=== PATIENT | male | born 1965 | race Caucasian/White ===

== ENCOUNTER 2020-05-28 12:17 | Day surgery (SDC) | payer BC ==
[~2020-05-28] VITALS: Ht 157.5 cm; Wt 90.5 kg
[~2020-05-28 12:17] MED LIST: ACETAMINOPHEN 500 MG TABLET PO PRN; ASPI-630 PO; CARV25TA2 PO; DOXY100C2 PO; HYDROmorphone 2 MG/ML VIAL IV PRN; IV RINGERS,LACTATED 1000ML 1,000 ML IV SCH; LIDOCAINE 1% PF 2 ML VIAL. ID PRN; LOSA100T14 PO; MORPHINE SULFATE 2 MG/ML VIAL. IV PRN; ONDANSETRON PF 4 MG/2 ML VIAL. IV PRN; PROCHLORPERAZINE 10 MG/2 ML VIAL. IV PRN; fentaNYL PF VIAL 100 MCG/2 ML VIAL IV PRN
[2020-05-28] MEDS ORDERED: fentaNYL PF VIAL 100 MCG/2 ML VIAL ONE ×2 (14:03→17:18)
[2020-05-28] MEDS ORDERED: MIDAZOLAM HCL/PF 2 MG/2 ML VIAL. ONE (14:03)
[2020-05-28] MEDS ORDERED: ONDANSETRON PF 4 MG/2 ML VIAL. ONE (14:06)
[2020-05-28] MEDS ORDERED: LIDOCAINE 2% PF 5 ML VIAL. ONE (14:06)
[2020-05-28] MEDS ORDERED: DEXAMETHASONE SOD PHOS 4 MG/ML VIAL ONE (14:06)
[2020-05-28] MEDS ORDERED: PROPOFOL 10 MG/ML (20ML) VIAL. IV ONE (14:06)
[2020-05-28] MEDS ORDERED: BUPIVACAINE-EPI 0.5%-1:200000 MPF 30 ML VIAL. ONE (15:06)
[2020-05-28] MEDS ORDERED: SEVOFLURANE 16 TO 30 MINUTES. IH ONE (16:30)
--- NOTE | 2020-05-28 16:57 | PDOC4 ---
Operative Note Operative Note Date: May 28, 2020 at 1754 Preoperative diagnosis: Left groin abscess Postoperative diagnosis: Same Procedure: Incision and drainage of left groin abscess Surgeon: Benito Specimen: Cultures and tissue from the left groin abscess Dictation: Patient is 54-year-old gentleman whose had a painful bulge in his left groin with pain. Procedure of incision and drainage was explained to the patient detail was benefits were also discussed including bleeding infection. Patient seemed understand gave both verbal and written consent to have procedure performed. Patient was taken to the operating room placed in the supine position general anesthesia was initiated once patient was sleeping in bed was placed in low lithotomy positioning and his perineum was prepped and draped usual sterile fashion was Betadine scrub and solution. Area over the abscess was injected with half percent Marcaine with epinephrine and a 15 blade used used to incise the abscess purulent material was expressed this was cultured and the rest of it was suctioned dry the wound was then irrigated normal saline and then packed with quarter inch iodoform new gauze. 4 x 4's Medipore tape were applied as dressings. Patient was awakened and extubated in the operating room taken to recovery in stable condition all sponge instrument needle counts listed as correct estimated blood loss 5 mL FANI MCCOLLUM MD May 28, 2020 16:57
--- NOTE | 2020-05-28 16:58 | DISCH ---
DISCHARGE INSTRUCTIONS Condition on Discharge Condition on Discharge: Stable Activity After Discharge Activity Instructions for Disc: Avoid exertion Diet after Discharge Diet after Discharge: Regular Wound Incision Care Other wound/incision instructi: May shower in 24 hours, packing should be changed daily Contacting the DRJessica after DC Call your doctor for: If your condition worsens Follow-Up Follow up with: Follow-up with Dr. Mccollum in 1 week FANI MCCOLLUM MD May 28, 2020 16:58
[2020-05-28] MEDS ORDERED: ACET1TAB33 PO (17:19)
[2020-05-28] MEDS: fentaNYL PF VIAL 100 MCG/2 ML VIAL IV PRN ×4 (17:20→17:44)
[2020-05-28] MEDS ORDERED: ACETAMINOPHEN/CODEINE 300/30MG TABLET. PO ONE (17:30)
[2020-05-28 17:52] VITALS: BP 157/96
--- NOTE | 2020-06-05 11:08 | PATHOLOGY ---
[facility] Accession Number: [id number] . 01 Material submitted: . groin - LEFT GROIN MASS (SITE OF ABSCESS). Modifiers: left . 01 Clinical history: . LEFT GROIN ABSCESS . 02 Diagnosis: Skin and subcutaneous tissue "left groin mass", excision: - Epidermal inclusion cyst with surrounding marked acute and chronic inflammation, hemorrhage and hemosiderin deposition. - Negative for malignancy. (MLK:pit; 06/05/2020) P 06/05/2020 1031 Local . 02 Electronically signed: . Mando Vick MD, Pathologist NPI- [id number] . 01 Gross description: . The specimen is received in formalin, labeled "Darius Mcclellan, left groin mass". Received is a segment of barnett-thorne skin with attached underlying soft tissue measuring 1.3 x 0.7 x 1.0 cm in greatest dimensions. The surgical margin is inked. Sectioning reveals pale thorne homogenous cut surfaces. The specimen is bisected and entirely submitted in cassette A1. (CAA; 05/29/2020) QAC/QAC 05/29/2020 1557 Local . 02 Pathologist provided ICD-10: L72.0 . 02 CPT . 943904 Specimen Comment: A courtesy copy of this report has been sent to [phone], [phone] Specimen Comment: [id number] Specimen Comment: Report sent to / Performed at: 01 [facility] [address], [place] [id number] MD Herman Lan MD Phone: [phone] Performed at: 02 [facility] [address], [place] [id number] MD Raul Muñiz MD Phone: [phone]
== END 2020-05-28 18:13 | disposition home or self-care (01) ==
LOC: SURG 12:17
PROVIDERS: ATTEND Surgery
DX: L02.214 Cutaneous abscess of groin (principal); Z20.828 Contact with and (suspected) exposure to other viral communicable diseases; Z88.8 Allergy status to other drugs, medicaments and biological substances; Z79.82 Long term (current) use of aspirin; Z79.899 Other long term (current) drug therapy
CPT/HCPCS: 10060; 87071; 87075; 87426; A7015; J0690; J1100; J2250; J2405; J2704; J3010; U0003; 87076; 87077; 88304

== ENCOUNTER 2020-09-26 11:45 | Emergency (ER) | payer BC ==
[~2020-09-26] VITALS: Ht 182.9 cm; Wt 95.0 kg
[~2020-09-26 11:45] MED LIST changes: +ACET1TAB33 PO; -ACETAMINOPHEN 500 MG TABLET PO PRN; -HYDROmorphone 2 MG/ML VIAL IV PRN; -IV RINGERS,LACTATED 1000ML 1,000 ML IV SCH; -LIDOCAINE 1% PF 2 ML VIAL. ID PRN; -MORPHINE SULFATE 2 MG/ML VIAL. IV PRN; -ONDANSETRON PF 4 MG/2 ML VIAL. IV PRN; -PROCHLORPERAZINE 10 MG/2 ML VIAL. IV PRN; -fentaNYL PF VIAL 100 MCG/2 ML VIAL IV PRN
[2020-09-26 12:23] VITALS: BP 155/102
[2020-09-26] MEDS ORDERED: ORPHENADRINE CITRATE 60 MG/2 ML VIAL. IM ONE (13:45)
--- NOTE | 2020-09-26 13:45 | RAD ---
CT LUMBAR SPINE WO Date: 09/26/2020 1:31 PM Indication: Reason: low back and tailbone pain with sciatica x2 weeks / Spl. Instructions: / Histor y: Comparison: None. Technique: Helical CT images of the lumbar spine were obtained without contrast. Coronal and sagitta l reformatted images were also performed. One or more of the following dose reduction techniques were utilized: Automated exposure control (AEC), Adjustment of mA and/or kV according to patient size, Us e of iterative reconstruction technique such as ASiR, CT scan done according to ALARA and image gentl y/image wisely. Findings: The lumbar spine is normally aligned. No acute fracture. Vertebral body heights are maintained withou t compression deformity. Mild multilevel degenerative disc disease. Multilevel small disc bulges with mild spinal canal stenosis and mild neural foraminal narrowing. Nonobstructive left renal 11 mm calculus. The visualized abdominal aorta is normal caliber. IMPRESSION: 1. No acute osseous abnormality of the lumbar spine. 2. Mild lumbar spondylosis. 3. Nonobstructive left renal 11 mm calculus. Electronically signed by: Bean Villalobos MD (09/26/2020 1:42 PM) [id number]
[2020-09-26] MEDS ORDERED: HYDR-2761 PO (13:53)
--- NOTE | 2020-09-26 13:53 | ED.ADGEN ---
Past Medical History Past Medical History: Hypertension Past Surgical History: Other Additional Past Surgical Histo: L KNEE, L SHOULDER, C5-C6 FUSION Smoking Status: Current Every Day Smoker Alcohol Use: Occasionally General Adult EDM: Chief Complaint: BACK PAIN - NO INJURY HPI: HPI: Patient is a 55 year old presents the emergency department with complaints of left-sided low back pain that radiates to his left leg and groin for the last 2 weeks. Patient states he recently took a taper of prednisone and has been taking Tylenol 3 that was given to him after being evaluated at [facility] ER and then again by his primary care doctor. The patient denies any loss of bowel/bladder control, saddle anesthesia, dysuria, hematuria, or inability to walk. Patient states that the pain increases with movement. He currently rates the pain a 8 out of 10 on pain scale, he denies any alleviating factors. Review of Systems: Review of Systems: Complete ROS is negative unless otherwise noted in HPI. Current Medications: Current Medications Medications (Trade) Dose Ordered Sig/Juan Start Time Stop Time Status Last Admin Dose Admin Orphenadrine Citrate (Norflex) 60 mg 1X ONCE 09/26/20 13:45 09/26/20 13:46 DC 09/26/20 13:40 60 MG Allergies: Allergies: Allergies Coded Allergies Type Severity Reaction Last Updated Verified ibuprofen Allergy Severe Anaphylaxis 05/27/20 Yes Beta-Blockers (Beta-Adrenergic Bloc Allergy Intermediate Hives 05/27/20 Yes NSAIDS (Non-Steroidal Anti-Inflamma Allergy Intermediate Hives 05/27/20 Yes amoxicillin Adverse Reaction Intermediate Diarrhea 05/28/20 Yes Physical Exam: PE: See Above Constitutional: Well developed, well nourished, no acute distress, non-toxic appearance. [] HENT: Normocephalic, atraumatic, bilateral external ears normal, nose normal. [] Eyes: PERRLA, EOMI, conjunctiva normal, no discharge. [] Neck: Normal range of motion, no stridor. [] Cardiovascular:Heart rate regular rhythm Lungs & Thorax: Respirations even and unlabored, no retractions, no respiratory distress Back: Left lumbar paraspinal tenderness to palpation with tenderness over the head of the piriformis, pain radiates down left leg with left leg lift, no bony tenderness, normal sensation of affected extremity. Skin: Warm, dry, no erythema, no rash. [] Extremities: No cyanosis, ROM intact, no edema. [] Neurologic: Alert and oriented X 3, no focal deficits noted. [] Psychologic: Affect normal, judgement normal, mood normal. [] Current Patient Data: Vital Signs: Vital Signs Date Time Temp Pulse Resp B/P (MAP) Pulse Ox O2 Delivery O2 Flow Rate FiO2 09/26/20 12:23 96.5 78 18 155/102 (119) 96 Room Air 96.5 EKG: EKG: [] Heart Score: Risk Factors: Risk Factors: DM, Current or recent (<one month) smoker, HTN, HLP, family history of CAD, obesity. Risk Scores: Score 0 - 3: 2.5% MACE over next 6 weeks - Discharge Home Score 4 - 6: 20.3% MACE over next 6 weeks - Admit for Clinical Observation Score 7 - 10: 72.7% MACE over next 6 weeks - Early Invasive Strategies Radiology/Procedures: Radiology/Procedures: PROCEDURE: CT LUMBAR SPINE WO CONTRAST CT LUMBAR SPINE WO Date: 09/26/2020 1:31 PM Indication: Reason: low back and tailbone pain with sciatica x2 weeks / Spl. Instructions: / History: Comparison: None. Technique: Helical CT images of the lumbar spine were obtained without contrast. Coronal and sagittal reformatted images were also performed. One or more of the following dose reduction techniques were utilized: Automated exposure control (AEC), Adjustment of mA and/or kV according to patient size, Use of iterative reconstruction technique such as ASiR, CT scan done according to ALARA and image gently/image wisely. Findings: The lumbar spine is normally aligned. No acute fracture. Vertebral body heights are maintained without compression deformity. Mild multilevel degenerative disc disease. Multilevel small disc bulges with mild spinal canal stenosis and mild neural foraminal narrowing. Nonobstructive left renal 11 mm calculus. The visualized abdominal aorta is normal caliber. IMPRESSION: 1. No acute osseous abnormality of the lumbar spine. 2. Mild lumbar spondylosis. 3. Nonobstructive left renal 11 mm calculus. [] Course & Med Decision Making: Course & Med Decision Making Pertinent Labs and Imaging studies reviewed. (See chart for details) [] Dragon Disclaimer: Dragon Disclaimer: This electronic medical record was generated, in whole or in part, using a voice recognition dictation system. Departure Departure Impression: Primary Impression: Low back pain with left-sided sciatica Disposition: 01 DC HOME SELF CARE/HOMELESS Condition: STABLE Referrals: ALLISON CORONA MD (PCP) MAGDALENO MURILLO MD Patient Instructions: Back Pain, Adult, Ejhe-tt-Dpcd, Sciatica, Azyd-de-Xwgw Additional Instructions: Fill the prescription(s) and use as directed. Apply heat or ice for to sore areas as needed for comfort. Activity as tolerated. Recommend follow-up with Dr. Murillo for further evaluation. Follow up with your primary care doctor this week if symptoms persist, return to the ER if symptoms worsen. Scripts Hydrocodone Bit/Acetaminophen (HYDROCODONE-APAP 5-325 ) 1 Tab Tablet 0.5-1 TAB PO PRN Q6HRS PRN for SEVERE PAIN 7-10 for 3 Days, #12 TAB 0 Refills Prov: BRAD KAPOOR GEOLOGICAL MANAGER 09/26/20 Problem Qualifiers Primary Impression: Low back pain with left-sided sciatica Chronicity: acute Back pain laterality: left Qualified Codes: M54.42 - Lumbago with sciatica, left side BRAD KAPOOR GEOLOGICAL MANAGER Sep 26, 2020 13:53
== END 2020-09-26 14:15 | disposition home or self-care (01) ==
LOC: ER 11:45
DX: M54.42 Lumbago with sciatica, left side (principal); I10 Essential (primary) hypertension; F17.200 Nicotine dependence, unspecified, uncomplicated; Z88.1 Allergy status to other antibiotic agents; Z88.6 Allergy status to analgesic agent; Z88.8 Allergy status to other drugs, medicaments and biological substances
CPT/HCPCS: 72131; 96372; 99284; J2360

== ENCOUNTER → 2020-10-01 | Outpatient (CLI) | payer BC ==
[2020-09-26 12:23] VITALS: BP 155/102
[~2020-10-01] MED LIST changes: +ATOR10TA60 PO; +DOCU-109 PO; +HYDR-2761 PO; +HYDR-2765 PO; +LOSA1TAB22 PO
--- NOTE | 2020-10-01 13:49 | KCIC ---
MRI lumbar spine without contrast 10/01/2020 CLINICAL HISTORY: Chronic low back pain with new-onset of left leg pain with numbness and burning. TECHNIQUE: Unenhanced T1-weighted and T2-weighted sagittal and axial and inversion recovery sagittal images of the lumbar spine were obtained. FINDINGS: Comparison is made to a CT scan of the lumbar spine dated 09/26/2020. Minimal S-shaped curvature of the thoracolumbar spine is seen. Degenerative signal changes are seen i nvolving all of the disks of the lumbar spine. Degenerative signal changes are seen within the marrow surrounding these discs. Loss of height of the L3-4, L4-5 and L5-S1 discs is noted. The conus medull agata is normal morphology, position, and signal characteristics. At the L1-2 disc space there is a minimal generalized disc bulge. Superimposed on this disc bulge is a right paracentral focal disc protrusion. This measures 2 mm in AP diameter. Degenerative changes ar e seen involving the facet joints bilaterally. There are small bilateral facet joint effusions bilate rally. There is mild ligament flavum hypertrophy bilaterally. These findings when combined do not res ult in significant central spinal canal or neural foraminal stenosis. At the L2-3 disc space is a mild generalized disc bulge. Superimposed on this disc bulge is a focal c entral disc protrusion. This measures 2 mm in AP diameter. Degenerative changes are seen involving th e facet joints bilaterally. There is mild ligament flavum hypertrophy bilaterally. There is prominenc e of the posterior epidural fat. These findings when combined result in mild to moderate central spin al canal stenosis. No neural foraminal stenosis is seen. At the L3-4 disc space there is a mild to moderate generalized disc bulge. This is eccentric to the r ight. Superimposed on this disc bulge is a central/left paracentral focal disc herniation which extru luda superiorly and laterally to the left. The extruded disc measures 2.2 1.2 x 0.6 cm in craniocaudal , transverse and AP dimensions. This extrudes to the superior L3 level. Degenerative changes are seen involving the facet joints bilaterally. There is mild ligamentum flavum hypertrophy bilaterally. The re is prominence of the posterior epidural fat. These findings when combined result in mild to modera te central spinal canal stenosis. No neural foraminal stenosis is seen. The extruded disc herniation results in severe left lateral central spinal canal stenosis throughout the majority of the L3 level. It appears to impinge upon the left L3 nerve root within the left lateral aspect of the central spin al canal. At the L4-5 disc space there is a mild generalized disc bulge. Superimposed on this disc bulge is a f ocal central disc protrusion. This measures 3 mm in AP diameter. Degenerative changes are seen involv ing the facet joints bilaterally. There is mild to moderate ligamentum flavum hypertrophy bilaterally . There are small facet joint effusions bilaterally. There is prominence of the posterior epidural fa t. These findings when combined result in mild to moderate central spinal canal stenosis. No neural f oraminal stenosis is seen. At the L5-S1 disc space there is a mild generalized disc bulge. Superimposed on this disc bulge is a focal central disc protrusion. This measures 3 mm in AP diameter. Degenerative changes are seen invol ving the facet joints bilaterally. There is mild ligamentum flavum hypertrophy bilaterally. These fin dings when combined result in mild central spinal canal stenosis. No neural foraminal stenosis is see n. IMPRESSION: The changes of degenerative disc disease are seen throughout the lumbar spine. These find ings result in mild to moderate central spinal canal stenosis at L2-3, L3-4 and L4-5 and mild central spinal canal stenosis at L5-S1. No neural foraminal stenosis is seen. At the L3-4 disc space there i s a superimposed central/left paracentral disc herniation which extrudes superiorly and laterally to the left. This results in severe left lateral central spinal canal stenosis throughout the majority o f the L3 level and appears to impinge upon the left L3 nerve root within the left lateral aspect of t he central spinal canal. Electronically signed by: Romel Joe MD (10/01/2020 1:46 PM) [id number]
== END ==
LOC: KCIC MRI 12:24
PROVIDERS: ATTEND Neurological Surgery
DX: M51.16 Intervertebral disc disorders with radiculopathy, lumbar region (principal); M47.26 Other spondylosis with radiculopathy, lumbar region; M47.818 Spondylosis without myelopathy or radiculopathy, sacral and sacrococcygeal region; M89.38 Hypertrophy of bone, other site; M48.07 Spinal stenosis, lumbosacral region; M53.3 Sacrococcygeal disorders, not elsewhere classified
CPT/HCPCS: 72148

== ENCOUNTER → 2020-10-02 | Outpatient (CLI) | payer BC ==
[2020-09-26 12:23] VITALS: BP 155/102
[~2020-10-02] MED LIST changes: +ORPH100T PO; +OXYC1TAB19 PO
[2020-10-02 14:31] LABS: BASO # 0.1 x10^3/uL (0.0-0.2); BASO % 1 % (0-3); EOS # 0.2 x10^3/uL (0.0-0.7); EOS % 3 % (0-3); HEMATOCRIT 46.7 % (39.0-53.0); HEMOGLOBIN 16.4 g/dL (13.0-17.5); LYMPH % 38 % (24-48); MEAN CORPUSCULAR HEMOGLOBIN 34 pg (25-35); MEAN CORPUSCULAR HGB CONC 35 g/dL (31-37); MEAN CORPUSCULAR VOLUME 98 fL (79-100); MONO # 0.7 x10^3/uL (0.0-1.1); MONO % 9 % (0-9); NEUT # 3.9 x10^3/uL (1.8-7.7); NEUT % 49 % (31-73); PLATELET COUNT 235 x10^3/uL (140-400); RED BLOOD COUNT 4.76 x10^6/uL (4.30-5.70); RED CELL DISTRIBUTION WIDTH 12.6 % (11.5-14.5); WHITE BLOOD COUNT 7.9 x10^3/uL (4.0-11.0)
[2020-10-02 14:41] LABS: ALBUMIN 3.9 g/dL (3.4-5.0); ALBUMIN/GLOBULIN RATIO 1.1 (1.0-1.7); CALCIUM 9.2 mg/dL (8.5-10.1); GFR 78.2; POTASSIUM 4.7 mmol/L (3.5-5.1); TOTAL BILIRUBIN 0.7 mg/dL (0.2-1.0); TOTAL PROTEIN 7.4 g/dL (6.4-8.2)
== END ==
LOC: SURGPAT 13:15
PROVIDERS: ATTEND Neurological Surgery
DX: Z01.812 Encounter for preprocedural laboratory examination (principal); M51.16 Intervertebral disc disorders with radiculopathy, lumbar region; Z20.828 Contact with and (suspected) exposure to other viral communicable diseases
CPT/HCPCS: 80053; 85025; 87641; U0003

== ENCOUNTER 2020-10-05 09:43 | Day surgery (SDC) | payer BC ==
--- NOTE | 2020-10-02 16:41 | PREOP HP ---
DATE OF SERVICE: 10/05/2020 HISTORY OF PRESENT ILLNESS: The patient is a pleasant 55-year-old man who 3 weeks ago with rising from a crouched position and developed severe lower back pain followed by pain that radiates to his left upper buttock on the left inguinal region and left anterior thigh, stopping just below the knee. He says his pain is a constant 9/10. He is most comfortable with sitting. If he tries to straighten his leg or stand, the pain becomes much more severe. He is taking pain medications. Lying down, he can occasionally find some comfort. He has been to the Emergency Room twice. He has seen a chiropractor about 5 times without benefit. He is taking pain medications as well as steroid medication. He feels as though there may be some weakness in his left leg. He has not noticed numbness. CURRENT MEDICATIONS: Tylenol No. 3, Coreg, atorvastatin, losartan, hydrochlorothiazide, hydrocodone, aspirin. PAST MEDICAL HISTORY: Hypertension. PAST SURGICAL HISTORY: Cervical fusion in 2004, knee surgery in 1995, shoulder surgery in 1997, tennis elbow release in 2007. FAMILY HISTORY: Cancer, hypertension. 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 Single. Smokes half a pack of cigarettes per day for 30 years. Drinks alcohol 1-2 times per week. ALLERGIES: IBUPROFEN. REVIEW OF SYSTEMS: A 12-point review of systems was performed and is noncontributory except that mentioned above. PHYSICAL EXAMINATION: GENERAL: Alert, pleasant and in distress due to back and left leg pain. HEAD: Normocephalic, atraumatic. SKIN: Warm and dry. MUSCULOSKELETAL: Lumbar paraspinal muscle bulk is normal, restricted range of motion of the lumbar spine, jrji-ev-gwfgceaz tenderness of the lumbar spine with palpation, normal range of motion of the lower extremities bilaterally. EXTREMITIES: No clubbing, cyanosis or edema. NEUROLOGIC: Alert and oriented x 3, normal recent and remote memory, strength is 5/5 in the lower extremities except hip flexor and quadriceps strength is 4/5. There is an absent left knee jerk. Right knee jerk was 1+. Sensory was intact to light touch in the lower extremities, straight leg raising on the left was markedly positive with severe back and left leg pain, antalgic gait. IMAGING DATA: I reviewed a CT scan of the lumbar spine as well as a lumbar MRI scan. There is a herniated disk at L3-4 on the left with nerve compression. ASSESSMENT AND PLAN: He has a severe lumbar radiculopathy, which I feel is due to the herniated disc at L3-4. We discussed surgery including a microdiscectomy. We spoke about the technique, risks, and expected postoperative course. He understands and would like to proceed. We are making the arrangements. MAGDALENO MURILLO MD DR: BRADY/kimberlee JOB#: [id number] / [id number] CHACHO
[~2020-10-05] VITALS: Ht 182.9 cm; Wt 90.3 kg
[~2020-10-05 09:43] MED LIST changes: +BACITRACIN 50,000 UNIT in IV NORMAL SALINE 1000ML BAG 1,000 ML IRR ONE; +BUPIVACAINE MPF 0.5% 30 ML VIAL. ONE; +BUPIVACAINE-EPI 0.5%-1:200000 MPF 30 ML VIAL. INJ ONE; -DOCU-109 PO; +EPINEPHrine VIAL 30 MG/30 ML VIAL ONE; +GELATIN SPONGE SIZE 100. ONE; +IV RINGERS,LACTATED 1000ML 1,000 ML IV SCH; +KETOROLAC 60 MG/2 ML VIAL. ONE; +LIDOCAINE 1% PF 30 ML VIAL. ONE; +LIDOCAINE 1%/EPI 1:100,000 20 ML VIAL. ONE; -ORPH100T PO; -OXYC1TAB19 PO; +THROMBIN TOPICAL 20,000 UNIT SPRAY.SYRN KIT TP ONE
--- NOTE | 2020-10-05 10:22 | EKG ---
[facility] [address] [place] [address] Test Date: 2020-10-05 Test Time: 10:17:36 Pat Name: CONNOR BERMUDEZ Department: Room: Gender: M [employer] Sales Representative: DAYRON : 1965 Requested By: MAGDALENO MURILLO Order Number: [id number] Reading MD: Measurements Intervals Newberg Rate: 72 P: -29 TX: 134 QRS: 26 QRSD: 78 T: 30 QT: 410 QTc: 451 Interpretive Statements SINUS RHYTHM VENTRICULAR PREMATURE COMPLEX(ES) INTERPOLATED ATRIAL PREMATURE COMPLEX(ES) QRS(T) CONTOUR ABNORMALITY CONSISTENT WITH SEPTAL INFARCT AGE UNDETERMINED ABNORMAL ECG RI6.02 No previous ECG available for comparison
[2020-10-05] MEDS ORDERED: PROPOFOL 10 MG/ML (20ML) VIAL. IV ONE (10:34)
[2020-10-05] MEDS ORDERED: ROCURONIUM 100 MG/10 ML VIAL. ONE (10:35)
[2020-10-05] MEDS ORDERED: LIDOCAINE 2% PF 5 ML VIAL. ONE (10:35)
[2020-10-05] MEDS ORDERED: SUCCINYLCHOLINE 200 MG/10 ML VIAL. ONE (10:36)
[2020-10-05] MEDS ORDERED: PROPOFOL 50 ML IV ONE ×2 (10:37→13:26)
[2020-10-05] MEDS ORDERED: REMIFENTANIL 2 MG VIAL. IV ONE (10:52)
[2020-10-05] MEDS ORDERED: fentaNYL PF VIAL 100 MCG/2 ML VIAL ONE ×3 (10:55→14:35)
[2020-10-05] MEDS ORDERED: ePHEDrine PF IN SALINE 50 MG/10 ML SYRINGE. IV ONE (12:42)
[2020-10-05] MEDS ORDERED: PHENYLEPHRINE in 0.9% NACL PF 1 MG/10 ML SYRINGE. IV ONE (12:47)
[2020-10-05] MEDS ORDERED: DESFLURANE 61 TO 120 MINUTES IH ONE (12:47)
[2020-10-05] MEDS ORDERED: DEXAMETHASONE SOD PHOS 4 MG/ML VIAL ONE (12:47)
[2020-10-05] MEDS ORDERED: DOCU-109 PO (12:58)
--- NOTE | 2020-10-05 12:59 | DISCH ---
DISCHARGE INSTRUCTIONS Condition on Discharge Condition on Discharge: Stable Activity After Discharge Activity Instructions for Disc: Activity as tolerated, Avoid exertion Other activity instructions: no driving for a week Bathing Instructions: Shower-keep dressing dry, No Tub Bath until see Lifting Instructions after Dis: No heavy lifting, No pulling or pushing, Do not lift >10 pounds Diet after Discharge Diet after Discharge: Regular Additional Diet Restrictions: resume home diet Wound Incision Care Wound/Incision Care: Ice to area for comfort Other wound/incision instructi: may remove dressing in 48 hours if dry then may shower, no soaking Contacting the after DC Call your doctor for: Concerns you may have Follow-Up Follow up with: Dr. Murillo's nurse in 2 weeks [phone] MAGDALENO MURILLO MD Oct 05, 2020 12:59
[2020-10-05] MEDS ORDERED: ONDANSETRON PF 4 MG/2 ML VIAL. ONE (13:49)
[2020-10-05] MEDS ORDERED: IPRATRPIUM/ALBUTEROL 0.5/2.5MG 3 ML NEBU. ONE (14:03)
[2020-10-05] MEDS ORDERED: MORPHINE SULFATE 2 MG/ML VIAL. ONE (14:22)
[2020-10-05] MEDS ORDERED: fentaNYL PF VIAL 100 MCG/2 ML VIAL IVP PRN (14:30)
[2020-10-05] MEDS ORDERED: IV RINGERS,LACTATED 1000ML 1,000 ML IV SCH (14:30)
[2020-10-05] MEDS ORDERED: LIDOCAINE 1% PF 2 ML VIAL. ID PRN (14:30)
[2020-10-05] MEDS ORDERED: IPRATRPIUM/ALBUTEROL 0.5/2.5MG 3 ML NEBU. NEB ONE (14:30)
[2020-10-05] MEDS ORDERED: ONDANSETRON PF 4 MG/2 ML VIAL. IVP PRN (14:30)
[2020-10-05] MEDS ORDERED: PROCHLORPERAZINE 10 MG/2 ML VIAL. IVP PRN (14:30)
[2020-10-05] MEDS ORDERED: HYDROmorphone 2 MG/ML VIAL IVP PRN (14:30)
[2020-10-05] MEDS: MORPHINE SULFATE 2 MG/ML VIAL. IVP PRN ×2 (14:31→14:41)
[2020-10-05] MEDS: fentaNYL PF VIAL 100 MCG/2 ML VIAL IVP PRN ×3 (14:31→14:51)
[2020-10-05] MEDS ORDERED: HYDROcodone/APAP 7.5/325MG 1 TAB TABLET PO PRN ×2 (14:45)
[2020-10-05 14:55] VITALS: BP 144/84
--- NOTE | 2020-10-05 16:28 | OP ---
DATE OF SURGERY: 10/05/2020 PREOPERATIVE DIAGNOSES: Herniated lumbar disc, L3-L4 with superolateral fragment and severe lumbar radiculopathy involving the L3-L4 nerve roots. POSTOPERATIVE DIAGNOSES: Herniated lumbar disc, L3-L4 with superolateral fragment and severe lumbar radiculopathy involving the L3-L4 nerve roots. OPERATION PERFORMED: Hemilaminotomy, L3-L4 left, with medial transforaminal exposure and removal of a large disc fragments compressing the L3 and L4 nerve root. SURGEON: Fredo Murillo M.D. ADMINISTRATIVE ANALYST: LAWRENCE Altman assisted with the exposure, the microdiscectomy as well as the closure. The operation included EMG monitoring, SSEP monitoring, fluoroscopy, microscopic dissection. OPERATIVE INDICATIONS: The patient is a pleasant 55-year-old man who developed severe intractable back and left leg pain and was found to have the above-mentioned findings. There was also left quadriceps and hip flexor weakness. I have recommended lumbar microsurgery. I discussed the surgery, the risks, technique and expected postoperative course and he wished to go ahead. DESCRIPTION OF PROCEDURE: Following general endotracheal anesthesia, the patient was positioned prone on the Cristian frame. His lumbar region was prepped and draped in standard fashion. LUIS hose and AV impulse boots were applied for DVT prophylaxis. The microscope was draped. Fluoroscopy was draped and brought into the field. Monitoring was established. Ancef 2 grams was given less than 1 hour prior to the initiation of the surgery. Using fluoroscopic guidance, a midline incision was made directly over the L3-L4 interspace, dissected down through the subcutaneous tissue, reflected the paraspinal muscles laterally. I placed a Tad microdisk retractor. I brought in the microscope and the remainder of surgery done with microscope using microscopic technique. I burred down a generous hemilaminotomy and then I carried this farther superiorly and then worked laterally, decompressing the medial foramen. I gently retracted the root medially and incised the ligament and annulus and then working superiorly. I visualized a lateral fragment, which I then grasped with a micropituitary and teased back a very large disc fragment, which markedly decompressed the entire region. I then worked farther medially and superiorly and there was a second large fragment, which I grasped and teased back and removed, which fully decompressed the dura. I then explored carefully. There were no further disc fragments. I worked to remove any other disc material and totally decompressed the L3 and L4 roots. At this point, then I felt I had an excellent decompression. I irrigated copiously with antibiotic solution. I did lay a couple of small pieces of Gelfoam down to a minimal amount of venous bleeding, which was amenable to the use of bipolar. I then removed the retractor, obtained hemostasis in the muscle. I irrigated, closed the wound in layers with absorbable suture. The skin was closed with 4-0 subcuticular stitch. The operation went very well. EMG monitoring was excellent throughout. There was a minimal amount of firing during the routine dissection, this settled down immediately. There were no difficulties or untoward events. At the end of the operation, there was no firing, I was quite pleased with the surgery. FREDO MURILLO MD DR: RADHA/kimberlee JOB#: [id number] / [id number] CHACHO
== END 2020-10-05 15:50 | disposition home or self-care (01) ==
LOC: SURG 09:43
PROVIDERS: ATTEND Neurological Surgery
DX: M51.16 Intervertebral disc disorders with radiculopathy, lumbar region (principal); I10 Essential (primary) hypertension; E78.00 Pure hypercholesterolemia, unspecified; E66.9 Obesity, unspecified; M19.90 Unspecified osteoarthritis, unspecified site; F17.210 Nicotine dependence, cigarettes, uncomplicated; Z79.82 Long term (current) use of aspirin; Z79.899 Other long term (current) drug therapy; Z98.890 Other specified postprocedural states; Z88.1 Allergy status to other antibiotic agents; Z88.8 Allergy status to other drugs, medicaments and biological substances; Z72.89 Other problems related to lifestyle
CPT/HCPCS: 63030; 93005; 97116; 97162; 97530; J0330; J0690; J1100; J2270; J2370; J2405; J2704; J3010; J3490; J7030; J7120; 76000; J0171; J1885

== ENCOUNTER 2021-02-05 10:49 | Emergency (ER) | payer BC ==
[~2021-02-05] VITALS: Ht 182.9 cm; Wt 93.1 kg
[~2021-02-05 10:49] MED LIST changes: -BACITRACIN 50,000 UNIT in IV NORMAL SALINE 1000ML BAG 1,000 ML IRR ONE; -BUPIVACAINE MPF 0.5% 30 ML VIAL. ONE; -BUPIVACAINE-EPI 0.5%-1:200000 MPF 30 ML VIAL. INJ ONE; +DOCU-109 PO; -EPINEPHrine VIAL 30 MG/30 ML VIAL ONE; -GELATIN SPONGE SIZE 100. ONE; -IV RINGERS,LACTATED 1000ML 1,000 ML IV SCH; -KETOROLAC 60 MG/2 ML VIAL. ONE; -LIDOCAINE 1% PF 30 ML VIAL. ONE; -LIDOCAINE 1%/EPI 1:100,000 20 ML VIAL. ONE; -THROMBIN TOPICAL 20,000 UNIT SPRAY.SYRN KIT TP ONE
[2021-02-05 11:28] VITALS: BP 184/116
[2021-02-05] MEDS ORDERED: ORPH100T PO (11:31)
[2021-02-05] MEDS ORDERED: OXYC1TAB19 PO (11:31)
--- NOTE | 2021-02-05 11:33 | PHYS DOC ---
Past Medical History Past Medical History: Hypertension Past Surgical History: Other Additional Past Surgical Histo: L KNEE, L SHOULDER, C5-C6 FUSION Smoking Status: Current Every Day Smoker Alcohol Use: Occasionally General Adult EDM: Chief Complaint: BACK PAIN OR INJURY HPI: HPI: Patient is a 55 year old [f__sex] who presents with [] Review of Systems: Review of Systems: Constitutional: Denies fever or chills. [] Eyes: Denies change in visual acuity. [] HENT: Denies nasal congestion or sore throat. [] Respiratory: Denies cough or shortness of breath. [] Cardiovascular: Denies chest pain or edema. [] GI: Denies abdominal pain, nausea, vomiting, bloody stools or diarrhea. [] : Denies dysuria. [] Musculoskeletal: Denies back pain or joint pain. [] Integument: Denies rash. [] Neurologic: Denies headache, focal weakness or sensory changes. [] Endocrine: Denies polyuria or polydipsia. [] Lymphatic: Denies swollen glands. [] Psychiatric: Denies depression or anxiety. [] Heart Score: Risk Factors: Risk Factors: DM, Current or recent (<one month) smoker, HTN, HLP, family history of CAD, obesity. Risk Scores: Score 0 - 3: 2.5% MACE over next 6 weeks - Discharge Home Score 4 - 6: 20.3% MACE over next 6 weeks - Admit for Clinical Observation Score 7 - 10: 72.7% MACE over next 6 weeks - Early Invasive Strategies Allergies: Allergies: Allergies Coded Allergies Type Severity Reaction Last Updated Verified ibuprofen Allergy Severe Anaphylaxis 10/05/20 Yes Beta-Blockers (Beta-Adrenergic Bloc Allergy Intermediate Hives 10/05/20 Yes NSAIDS (Non-Steroidal Anti-Inflamma Allergy Intermediate Hives 10/05/20 Yes Physical Exam: PE: Constitutional: Well developed, well nourished, no acute distress, non-toxic appearance. [] HENT: Normocephalic, atraumatic, bilateral external ears normal, oropharynx moist, no oral exudates, nose normal. [] Eyes: PERRLA, EOMI, conjunctiva normal, no discharge. [] Neck: Normal range of motion, no tenderness, supple, no stridor. [] Cardiovascular:Heart rate regular rhythm, no murmur [] Lungs & Thorax: Bilateral breath sounds clear to auscultation [] Abdomen: Bowel sounds normal, soft, no tenderness, no masses, no pulsatile masses. [] Skin: Warm, dry, no erythema, no rash. [] Back: No tenderness, no CVA tenderness. [] Extremities: No tenderness, no cyanosis, no clubbing, ROM intact, no edema. [] Neurologic: Alert and oriented X 3, normal motor function, normal sensory function, no focal deficits noted. [] Psychologic: Affect normal, judgement normal, mood normal. [] Current Patient Data: Vital Signs: Vital Signs Date Time Temp Pulse Resp B/P (MAP) Pulse Ox O2 Delivery O2 Flow Rate FiO2 02/05/21 11:05 98.1 71 20 201/123 (149) 100 Room Air 98.1 EKG: EKG: [] Radiology/Procedures: Radiology/Procedures: [] Course & Med Decision Making: Course & Med Decision Making Pertinent Labs and Imaging studies reviewed. (See chart for details) [] Dragon Disclaimer: Dragon Disclaimer: This electronic medical record was generated, in whole or in part, using a voice recognition dictation system. Departure Departure Impression: Primary Impression: Low back pain with left-sided sciatica Qualified Codes: M54.42 - Lumbago with sciatica, left side; G89.29 - Other chronic pain Disposition: 01 HOME / SELF CARE / HOMELESS Condition: STABLE Referrals: ALLISON CORONA MD (PCP) MAGDALENO MURILLO MD Patient Instructions: Chronic Back Pain, Sciatica, [id number] Additional Instructions: Discontinue previously prescribed Flexeril. Hold Hydrocodone prescription while taking Oxycodone. Continue previously prescribed steroid. Scripts Orphenadrine Citrate (ORPHENADRINE CITRATE) 100 Mg Tablet.er 100 MG PO BID PRN for MUSCLE PAIN, #14 TAB Prov: HANK HYATT DO 02/05/21 Oxycodone/Apap 7.5-325 (PERCOCET 7.5-325 MG TABLET ) 1 Each Tablet 0.5-1 TAB PO PRN Q6HRS PRN for PAIN, #10 TAB 0 Refills Prov: HANK HYATT DO 02/05/21 HANK HYATT DO February 05, 2021 11:33
== END 2021-02-05 11:40 | disposition home or self-care (01) ==
LOC: ER 10:49
DX: M54.42 Lumbago with sciatica, left side (principal); I10 Essential (primary) hypertension; F17.200 Nicotine dependence, unspecified, uncomplicated; Z88.8 Allergy status to other drugs, medicaments and biological substances
CPT/HCPCS: 99283

== ENCOUNTER 2021-02-09 11:02 | Observation (INO) | payer BC ==
[~2021-02-09] VITALS: Ht 182.9 cm; Wt 93.2 kg
[~2021-02-09 11:02] MED LIST changes: +ORPH100T PO; +OXYC1TAB19 PO
[2021-02-09] MEDS ORDERED: ONDANSETRON PF 4 MG/2 ML VIAL. IVP ONE (13:00)
[2021-02-09] MEDS ORDERED: MORPHINE SULFATE 4 MG/ML VIAL. IV ONE ×2 (13:00→15:00)
--- NOTE | 2021-02-09 13:10 | PHYS DOC ---
Past Medical History Past Medical History: Hypertension Past Surgical History: Other Additional Past Surgical Histo: L KNEE, L SHOULDER, C5-C6 FUSION, bulging discs Smoking Status: Current Every Day Smoker Alcohol Use: Occasionally General Adult EDM: Chief Complaint: BACK PAIN OR INJURY HPI: HPI: Patient is a 55 year old with history of Herniated lumbar disc, L3-L4 with superolateral fragment and severe lumbar radiculopathy involving the L3-L4 nerve roots status post surgery done by Dr. Fredo Murillo in 10/05/20 presented to the ER today for evaluation of lower back pain for about 1 week. Patient has been having numbness on the anterior part of his left thigh to the knee cap area. Patient stared having worse pain and numbness yesterday. He said this morning, he was trying to urinate but was not able to empty his bladder, he lost control of his bladder later, urinated on himself. He call his Neurosurgeon, Dr. Fredo Murillo who advised him to come to the ER for evaluation with MRI of his lumbar spine. Patient denies any cough or fever. Patient denies any abdominal pain. Review of Systems: Review of Systems: Constitutional: Denies fever or chills. [] Eyes: Denies change in visual acuity. [] HENT: Denies nasal congestion or sore throat. [] Respiratory: Denies cough or shortness of breath. [] Cardiovascular: Denies chest pain or edema. [] GI: Denies abdominal pain, nausea, vomiting, bloody stools or diarrhea. [] : Denies dysuria. Positive for bladder incontinence. Musculoskeletal: Positive for lower back pain that radiating to left thigh Integument: Denies rash. [] Neurologic: Denies headache, focal weakness or sensory changes. [] Endocrine: Denies polyuria or polydipsia. [] Lymphatic: Denies swollen glands. [] Psychiatric: Denies depression or anxiety. [] Heart Score: C/O Chest Pain: N/A Risk Factors: Risk Factors: DM, Current or recent (<one month) smoker, HTN, HLP, family history of CAD, obesity. Risk Scores: Score 0 - 3: 2.5% MACE over next 6 weeks - Discharge Home Score 4 - 6: 20.3% MACE over next 6 weeks - Admit for Clinical Observation Score 7 - 10: 72.7% MACE over next 6 weeks - Early Invasive Strategies Current Medications: Current Medications Medications (Trade) Dose Ordered Sig/Juan Start Time Stop Time Status Last Admin Dose Admin Morphine Sulfate (Morphine Sulfate) 4 mg 1X ONCE 02/09/21 13:00 02/09/21 13:01 DC Ondansetron HCl (Zofran) 4 mg 1X ONCE 02/09/21 13:00 02/09/21 13:01 DC Allergies: Allergies: Allergies Coded Allergies Type Severity Reaction Last Updated Verified ibuprofen Allergy Severe Anaphylaxis 10/05/20 Yes Beta-Blockers (Beta-Adrenergic Bloc Allergy Intermediate Hives 10/05/20 Yes NSAIDS (Non-Steroidal Anti-Inflamma Allergy Intermediate Hives 10/05/20 Yes Physical Exam: PE: Constitutional: Well developed, well nourished, no acute distress, non-toxic appearance. [] HENT: Normocephalic, atraumatic, bilateral external ears normal, oropharynx moist, no oral exudates, nose normal. [] Eyes: PERRLA, EOMI, conjunctiva normal, no discharge. [] Neck: Normal range of motion, no tenderness, supple, no stridor. [] Cardiovascular:Heart rate regular rhythm, no murmur [] Lungs & Thorax: Bilateral breath sounds clear to auscultation [] Abdomen: Bowel sounds normal, soft, no tenderness, no masses, no pulsatile masses. [] Skin: Warm, dry, no erythema, no rash. [] Back: There is tenderness to palpation in L4/L5 AREA AT MIDLINE. There is altered sensation on left anterior thigh and knee area. Patient can move his toes without any problem. . [] Extremities: No tenderness, no cyanosis, no clubbing, ROM intact, no edema. [] Neurologic: Alert and oriented X 3, normal motor function, normal sensory function, no focal deficits noted. [] Psychologic: Affect normal, judgement normal, mood normal. [] Current Patient Data: Vital Signs: Vital Signs Date Time Temp Pulse Resp B/P (MAP) Pulse Ox O2 Delivery O2 Flow Rate FiO2 02/09/21 12:25 98.1 100 18 150/86 (107) 100 98.1 EKG: EKG: [] Radiology/Procedures: Radiology/Procedures: [][facility] [address] [place] [address] IMAGING REPORT Signed PATIENT: CONNOR BERMUDEZ ACCOUNT: [id number] : 1965 LOCATION: ER AGE: 55 SEX: M EXAM STATUS: REG ER ORD. PHYSICIAN: TERRANCE MALDONADO DO REASON: LOWER BACK PAIN PROCEDURE: LUMBAR SPINE 2-3V Site ID: [id number] EXAMINATION: XR LUMBAR SPINE 2-3V. HISTORY: 55 years Male Reason: LOWER BACK PAIN / Spl. Instructions: / History: . . COMPARISON: None. FINDINGS: The vertebral body heights and alignment of the spine satisfactory disc heights are also preserved there are mild anterior osteophytes lower lumbar spine no gross SI joints. The paraspinal soft tissues demonstrate calcification measuring 1.2 cm likely related to a stone. IMPRESSION: Mild degenerative changes. Suggestion left kidney stone. Electronically signed by: Katie Silva MD (02/09/2021 1:19 PM) [id number] DICTATED and SIGNED BY: KATIE SILVA MD DATE: 02/09/21 [id number] Course & Med Decision Making: Course & Med Decision Making Pertinent Labs and Imaging studies reviewed. (See chart for details) This physician discussed with the neurosurgeon, Dr. Fredo Murillo, who recommended STAT MRI OF his lumbar spine without and with IV contrast. Patient was in a lot of pain, patient was given multiple doses of pain medication in ER, due to his neurological symptom, his physician told patient that we need to get him admitted to hospital for pain control. Patient agreed with the recommendation. Discussed with the hospitalist on-call, Dr. Faria about admitting patient due to pain and neuropathy in his left thigh, Dr. Faria agreed to admit patient and came down to see patient in the ER. Admission order was done, MRI OF LUMBAR SPINE REPORT WAS STILL PENDING, NOTIFIED DR. FREDO MURILLO ABOUT IT. Patient was given 1 mg IV Dilaudid for pain control. He felt much better. He had a bed assigned to [place] [id number]. This physician was told by patient RN, Anton, that patient's family just came, he did not want to be admitted. He wanted to leave despite MRI of his lumbar spine report is not avaiable yet. Patient signed out against medical advise. He was awake alert oriented. Notified by nurse that patient wishes to leave against medical advice. Had an extensive discussion with the patient regarding the risks of leaving AMA inc luding but not limited to , permanent disability, and worsening condition. Patient acknowledged the risks and agreed to take full responsibility. Patient was A&Ox4 and had full medical decision making capacity. Patient signed AMA form stating they understood risks and ambulated out of ED with steady gait. Dragon Disclaimer: Dragon Disclaimer: This electronic medical record was generated, in whole or in part, using a voice recognition dictation system. Departure Departure Impression: Primary Impression: Low back pain radiating to lower extremity Disposition: LEFT AGAINST MEDICAL ADVICE Condition: STABLE Referrals: ALLISON CORONA MD (PCP) Patient Instructions: Discharge Against Medical Advice TERRANCE MALDONADO DO February 09, 2021 13:10
--- NOTE | 2021-02-09 13:22 | RAD ---
Site ID: [id number] EXAMINATION: XR LUMBAR SPINE 2-3V. HISTORY: 55 years Male Reason: LOWER BACK PAIN / Spl. Instructions: / History: . . COMPARISON: None. FINDINGS: The vertebral body heights and alignment of the spine satisfactory disc heights are also preserved th ere are mild anterior osteophytes lower lumbar spine no gross SI joints. The paraspinal soft tissues demonstrate calcification measuring 1.2 cm likely related to a stone. IMPRESSION: Mild degenerative changes. Suggestion left kidney stone. Electronically signed by: Frandy Silva MD (02/09/2021 1:19 PM) [id number]
[2021-02-09 13:25] LABS: BASO # 0.1 x10^3/uL (0.0-0.2); BASO % 1 % (0-3); EOS # 0.1 x10^3/uL (0.0-0.7); EOS % 1 % (0-3); HEMATOCRIT 50.5 % (39.0-53.0); HEMOGLOBIN 17.6 g/dL (13.0-17.5); LYMPH # 4.4 x10^3/uL (1.0-4.8); LYMPH % 31 % (24-48); MEAN CORPUSCULAR HEMOGLOBIN 34 pg (25-35); MEAN CORPUSCULAR HGB CONC 35 g/dL (31-37); MEAN CORPUSCULAR VOLUME 98 fL (79-100); MONO # 1.1 x10^3/uL (0.0-1.1); MONO % 7 % (0-9); NEUT # 8.7 x10^3/uL (1.8-7.7); NEUT % 60 % (31-73); PLATELET COUNT 246 x10^3/uL (140-400); RED BLOOD COUNT 5.18 x10^6/uL (4.30-5.70); RED CELL DISTRIBUTION WIDTH 12.6 % (11.5-14.5); WHITE BLOOD COUNT 14.4 x10^3/uL (4.0-11.0)
[2021-02-09 13:44] LABS: CALCIUM 8.9 mg/dL (8.5-10.1); CREATININE 1.2 mg/dL (0.7-1.3); GFR 63.3
[2021-02-09 13:49] LABS: ALBUMIN 4.1 g/dL (3.4-5.0); ALBUMIN/GLOBULIN RATIO 1.2 (1.0-1.7); TOTAL PROTEIN 7.5 g/dL (6.4-8.2)
[2021-02-09] MEDS ORDERED: GADOTERATE 7.5 MMOL/15ML VIAL. IVP ONE (15:45)
[2021-02-09] MEDS ORDERED: HYDROmorphone 2 MG/ML VIAL IVP ONE (15:45)
[2021-02-09 15:57] LABS: BILIRUBIN,URINE NEGATIVE (NEG); CLARITY,URINE CLEAR; COLOR,URINE YELLOW; NITRITE,URINE NEGATIVE (NEG); PROTEIN,URINE NEGATIVE (NEG-TRACE); UROBILINOGEN,URINE 0.2 mg/dL (0.2 mg/dL)
[2021-02-09 16:10] LABS: HYALINE CASTS, URINE MODERATE /HPF
[2021-02-09 16:11] LABS: BACTERIA,URINE 0 /HPF (0-FEW)
[2021-02-09 17:47] VITALS: BP 155/98
[2021-02-09] MEDS ORDERED: IV NORMAL SALINE 1000ML BAG 1,000 ML IV SCH (18:30)
[2021-02-09] MEDS ORDERED: ONDANSETRON PF 4 MG/2 ML VIAL. IV PRN (18:30)
[2021-02-09] MEDS ORDERED: MORPHINE SULFATE 4 MG/ML VIAL. IV PRN (18:30)
--- NOTE | 2021-02-09 19:05 | HP ---
ADMIT DATE: 02/09/2021 CHIEF COMPLAINT: Back pain. HISTORY OF PRESENT ILLNESS: The patient is a pleasant 55-year-old male who has known previous lumbar radiculopathy. He actually had surgery 5 months ago. He has been doing well, but over the past week has developed severe pain. He also has some numbness in his legs and today he lost control of his bladder. His neurosurgeon, Dr. Lang asked him to go to the ER. The patient is now being admitted. I have discussed the case with ER physician. PAST MEDICAL HISTORY: Left knee surgery, left shoulder surgery, bulging disk and he has had surgery on his back, tobacco abuse. ALLERGIES: BETA BLOCKERS AND NONSTEROIDALS. FAMILY HISTORY: Diabetes. SOCIAL HISTORY: He smokes. No drink or drugs. MEDICATIONS: Reviewed, please refer to the MRAD. REVIEW OF SYSTEMS: GENERAL: No history of weight change, weakness or fevers. SKIN: No bruising, hair changes or rashes. EYES: No blurred, double or loss of vision. NOSE AND THROAT: No history of nosebleeds, hoarseness or sore throat. HEART: No history of palpitations, chest pain or shortness of breath on exertion. LUNGS: Denies cough, hemoptysis, wheezing or shortness of breath. GASTROINTESTINAL: Denies changes in appetite, nausea, vomiting, diarrhea or constipation. GENITOURINARY: No history of frequency, urgency, hesitancy or nocturia. NEUROLOGIC: Denies history of numbness, tingling, tremor or weakness. PSYCHIATRIC: No history of panic, anxiety or depression. ENDOCRINE: No history of heat or cold intolerance, polyuria or polydipsia. MUSCULOSKELETAL: He complains of back pain. PHYSICAL EXAMINATION: VITALS: Within normal limits and are stable. GENERAL: No apparent distress. Alert and oriented. HEENT: Normal cephalic atraumatic, external auditory canals are patent EYES: Extraocular muscles are intact, pupils are equally round and reactive to light and accommodation ENDOCRINE: No thyromegaly was palpated LYMPHATICS: No cervical chain or axillary nodes were noted. HEMATOPOIETIC: No bruising. NECK: Supple, no JVD, no thyromegaly was noted. LUNGS: Clear to auscultation in all lung monae without rhonchi or wheezing. HEART: RRR, S1, S2 present. Peripheral pulses intact, no obvious murmurs were noted. ABDOMEN: Soft, nontender. Positive bowel sounds no organomegaly, normal bowel sounds. MUSCULOSKELETAL: He has some ropiness to the muscles of the lower back. NEUROLOGIC: He has decreased plantar flexion. PSYCHIATRIC: Normal affect, normal mood. Stable. SKIN: No ulcerations or rashes, good skin turgor, no jaundice. VASCULAR: Good capillary refill, neurovascular bundle appears to be intact. ASSESSMENT AND PLAN: Acute on chronic radiculopathy. The patient has been admitted. We will consult Dr. Lang. Home meds. DVT prophylaxis. Full code. P.r.n. pain meds. We will consider steroids. EMEKA/HARITHA/KAITLYNN DR: EMEKA/kimberlee TID: [id number]
[2021-02-09] MEDS ORDERED: methylPREDNISolone SOD SUCC PF 40 MG/ML VIAL. IV SCH (22:00)
--- NOTE | 2021-02-10 10:32 | RAD ---
MRI LUMBAR SPINE WITHOUT AND WITH IV CONTRAST History: Reason: lower back pain with bladder incontinence, left leg numbness, hx of surgery / Spl. I nstructions: 18.5mL CLARISCAN / History: Technique: Multiplanar, multi sequential MR imaging was performed of the lumbar spine without and wit h intravenous contrast. Comparison: October 01, 2020 Findings: Postoperative changes L3-L4 left hemilaminotomy. Enhancement within the laminectomy defect. Enhancing nerve root within the right thecal sac extending to the right L3-L4 neural foramen, potentially post operative. Slight grade 1 anterolisthesis L5 on S1, unchanged. Normal vertebral height. No fracture. Conus terminates at the normal location. No evidence of nerve root clumping. L1-L2: Small disc bulge. No canal or neuroforaminal narrowing. L2-L3: Small disc bulge with central annular fissure. Mild facet arthropathy. No canal narrowing. Puente barticular recess narrowing. No neuroforaminal narrowing. L3-L4: Interval left hemilaminectomy. Broad-based disc bulge with decreased left subarticular disc e xtrusion extending superiorly. Central annular fissure. Subarticular recess narrowing. Decreased joselito l narrowing. Right foraminal disc protrusion. Mild bilateral neuroforaminal narrowing, right greater than left. Moderate facet arthropathy. L4-L5: Disc bulge. Moderate facet arthropathy. Mild canal narrowing, increased compared to prior. Puente barticular recess narrowing. Abutment of the descending L5 nerve roots. Prominent epidural fat. Mild right neuroforaminal narrowing, unchanged. L5-S1: Slight anterolisthesis. Central disc bulge. Moderate facet arthropathy. Abutment of the desce nding S1 nerve roots within the subarticular recess, increased. No canal narrowing. No neuroforaminal narrowing. Impression: 1. Interval postoperative changes L3-L4 with improved canal patency. Decreased left subarticular L3- L4 disc extrusion extending superiorly. 2. Multilevel lumbar spondylosis with increased canal and subarticular recess narrowing L4-5. Electronically signed by: Carlos Lucas DO (02/10/2021 10:30 AM) [id number]
== END 2021-02-10 06:04 | disposition left against medical advice (07) ==
LOC: ER 11:02 → 4 NORTH 17:04
PROVIDERS: ADMIT Internal Medicine; ATTEND Internal Medicine
DX: M54.16 Radiculopathy, lumbar region (principal); I10 Essential (primary) hypertension; F17.200 Nicotine dependence, unspecified, uncomplicated; Z79.899 Other long term (current) drug therapy; Z98.890 Other specified postprocedural states
CPT/HCPCS: 36415; 72100; 72158; 80053; 81001; 85025; 96374; 96375; 96376; 99285; A9575; G0378; J1170; J2270; J2405; G0379

== ENCOUNTER → 2021-02-12 | Outpatient (CLI) | payer BC ==
[2021-02-09 17:47] VITALS: BP 155/98
[~2021-02-12] MED LIST changes: +IOHEXOL 180 MG/ML 10 ML VIAL. ONE; +methylPREDNISolone ACETATE 40 MG/ML VIAL. ONE; +methylPREDNISolone ACETATE 80 MG/ML VIAL. ONE
--- NOTE | 2021-02-12 12:39 | PDOC1 ---
INITIAL PAIN CONSULT DATE OF SERVICE: DOS: DATE: 02/12/21 TIME: 12:32 CHIEF COMPLAINT: Chief Complaint: Low back and left lower extremity pain HISTORY OF PRESENT ILLNESS: 55-year-old male presents history of pain in the low back left lower extremity status post recent lumbar discectomy with laminectomy at the L3-4 level left- sided hemilaminectomy. Patient reports this was on October 01, 2020, and had excellent relief of the pain immediately following however over the past 2 weeks the pain is returned and is as bad as it was back prior to his surgery. Patient reports in the low back and posterior gluteus posterior lateral thigh anterior thigh anteromedial thigh left groin and medial lower leg as well. Patient reports worse with walking standing weightbearing describes as constant sharp throbbing shooting numbness and tingling in the leg cramping in the back and the leg patient reports it wakes him from sleep least 3 times or more at night. Patient reports it does affect his ability to walk does not use any assistive device however it also causes some incontinence at times from the bladder. Patient reports has had physical therapy also chiropractic treatment each of which were only minimally helpful patient reports he is taking oxycodone also hydrocodone and Flexeril which help but only for minimal amount patient also taking ibuprofen which is helpful but only very minimally as well. Patient rates his disability rating 0-10 10 being the worst is a 7 with family home responsibilities recreation and social activity 7-8 with sexual behavior 6 with self-care and 6 with life support activities. Patient did have MRI scan lumbar spine dated February 09, 2021 showing interval postoperative changes L3-4 with improved canal patency decreased left subarticular L3-4 disc extrusion extending superiorly. PAST MEDICAL HISTORY: PMH: Hypertension, cigarette smoking PREVIOUS SURGERIES: Past Surgical Hx: Cervical fusion 2008, lumbar hemilaminectomy October 01, 2020, right elbow release left rotator cuff repair and tonsillectomy CURRENT MEDICATIONS: Current Meds: Active Scripts Medications Dose Route/Sig Max Daily Dose Days Date Category Orphenadrine Citrate 100 Mg Tablet.er 100 Mg PO BID PRN 02/05/21 Rx Percocet 7.5-325 Mg Tablet (Oxycodone/Acetaminophen) 1 Each Tablet 0.5-1 Tab PO PRN Q6HRS PRN 02/05/21 Rx Atorvastatin Calcium 10 Mg Tablet 10 Mg PO HS 10/02/20 Reported Hydrocodone-Apap 7.5-325 (Hydrocodone Bit/Acetaminophen) 1 Tab Tablet 2 Tab PO PRN Q6HRS PRN 10/02/20 Reported Losartan-Hctz 100-25 Mg Tab (Losartan/Hydrochlorothiazide) 1 Each Tablet 1 Tab PO DAILY 10/02/20 Reported Carvedilol 25 Mg Tablet 25 Mg PO BIDWMEALS 05/27/20 Reported Aspirin 81 Mg Tab.chew 81 Mg PO BID 05/27/20 Reported ALLERGIES; Allergies: Coded Allergies: ibuprofen (Verified Allergy, Severe, Anaphylaxis, 10/05/20) Beta-Blockers (Beta-Adrenergic Bloc (Verified Allergy, Intermediate, Hives, 10/05/20) CERTAIN BETA BLOCKERS CAUSE HIVES (NOT CARVEDILOL NSAIDS (Non-Steroidal Anti-Inflamma (Verified Allergy, Intermediate, Hives, 10/05/20) FAMILY HISTORY: Family Hx: Hypertension SOCIAL HISTORY: Social Hx: Patient drinks alcohol occasionally does not use any illegal illicit recre ational drugs smokes cigarettes about a pack a day or less and has for 30 years continues to smoke patient is single lives locally in [facility] patient works in the [employer] system REVIEW OF SYSTEMS: ROS: Positive for those items mentioned in history of present illness, all systems are reviewed, otherwise negative ,and are complete full and well-documented on patient's chart. PHYSICAL EXAM: VS: Blood pressure is 138/93 pulse 87 respirations 18 temperature 98.2 F height is 6 foot weight is 195 pounds PE: PHYSICAL EXAMINATION: GENERAL: The patient is awake, alert, oriented, appropriate, very pleasant demeanor HEENT: Shows normocephalic, atraumatic. Extraocular movements are intact and symmetrical. Oral cavity: Mucous membranes moist and pink. Dentition is intact. NECK: Shows anterior throat supple without palpable lymphadenopathy noted. Swallow reflex symmetrical. CHEST: Shows normal on inspection. Breath sounds are clear bilaterally, distant but no rales rhonchi or wheezes auscultated. HEART: Shows S1, S2 clear. No murmurs auscultated. ABDOMEN: Soft, nontender, nondistended, obese. No palpable organomegaly is noted. BACK: Shows spine grossly in the midline. Normal-appearing cervical lordotic curvature. There mildly increased thoracic kyphosis, some minor flattening of the lumbar lordotic curvature. Lumbar paraspinous muscles show symmetrical on inspection, on palpation shows some moderate tenderness diffusely throughout the middle and lower distribution of the paraspinous muscles bilaterally and also into the lower thoracic paraspinous musculature, firm and tender, but without specific trigger points, without radiation of pain. The patient has good rotati onal motion of the lumbar spine, both laterally as well as extension and flexion without significant difficulty. No tenderness over the spinous processes, sacrum or sacroiliac regions. EXTREMITIES: Lower extremities show deep tendon reflexes 2 in the patellar and tendo calcaneus tendons. Motor exam is 5 on a scale of 5 with right dorsiflexion, extension, quadriceps and hamstring flexion and 4/5 on the left. Peripheral pulses are 1+ posterior tibial. No peripheral edema is noted bilaterally. Lower extremities are warm and dry to touch, equal in color and appearance. Straight leg raise noted to be negative on the right, left side is positive at approximately 40 degrees decreased with knee flexion. Gaenslen's and Pablo's maneuvers are negative bilaterally. The patient is able to stand, stand on his toes with significant difficulty putting all of his weight on his left leg walks with a significant antalgic gait favoring the left lower extremity however not use any assistive devices. SKIN: Shows warm and dry, good turgor. No edema. No sores, rashes or bruising throughout. IMPRESSION: Impression: 55-year-old male with recent history of increased pain low back left lower extremity status post hemilaminectomy left side L3-4 October 01, 2020 MRI scan lumbar spine as noted Hypertension Cigarette smoking Plan: Options were discussed with the patient including conservative medical management physical therapies and interventional techniques. Patient would like to pursue interventional techniques. We discussed a lumbar epidural steroid injection using description as well as anatomical models to describe the procedure. Risks were discussed including but not limited to: Bleeding, infection, possibility of epidural hematoma and subsequent neurological compromise, dural puncture, headaches, spinal cord and/or nerve damage, side effects of steroid medication, and poor results regarding pain control. Patient understands and wished to proceed. Patient will return to clinic in approximate 2 weeks for follow-up, was counseled as to return appointment activity level and side effects to be aware of. Procedure is lumbar epidural steroid injection under local anesthetic using sterile prep and drape at the L3-4 level using C-arm fluoroscopic guidance in both AP and lateral views medications injected is 120 mg Depo-Medrol +10mL preservative-free normal saline and 2 mL contrast- condition at discharge is stable patient tolerated procedure well had no complications. NATALIE COLLAZO MD February 12, 2021 12:39
== END | disposition home or self-care (01) ==
LOC: PNCL 08:17
PROVIDERS: ATTEND Anesthesiology
DX: M54.5 Low back pain (principal); M79.605 Pain in left leg; I10 Essential (primary) hypertension; E78.00 Pure hypercholesterolemia, unspecified; E66.9 Obesity, unspecified; M19.90 Unspecified osteoarthritis, unspecified site; F17.210 Nicotine dependence, cigarettes, uncomplicated; Z79.899 Other long term (current) drug therapy; Z79.82 Long term (current) use of aspirin; Z98.890 Other specified postprocedural states; Z88.8 Allergy status to other drugs, medicaments and biological substances; Z72.89 Other problems related to lifestyle
CPT/HCPCS: 62323; J1030; J1040; Q9965